=== PATIENT | female | born 1960 | race Caucasian/White ===

== ENCOUNTER → 2024-05-01 09:50 | Outpatient (CLI) | payer OTHER, SELFPAY ==
--- NOTE | 2024-05-01 13:18 | DI.ECHO.S_ITS ---
[facility] : : [address] : : [place] : : [id number] : : Phone: [phone] Echocardiogram Report + + :Name: RISHI BRANDON Study Date: 05/01/2024 Height: 67 in : :Hospital ReadingLocation: Weight: 143 lb : : Gender: Female BSA: 1.8 m2 : :: 1960 Age: 63 yrs BP: 145/92 mmHg: :Reason For Study: ATRIAL FIBRILLATION : :Ordering Physician: Cole STYLESformed By: Xavier Faustin : :Referring: CUBA STYLES : + + Interpretation Summary Normal left ventricle size with ejection fraction 50%. There is a pacemaker lead in the right ventricle. No significant valvular abnormality. Procedure: A two-dimensional transthoracic echocardiogram with color flow and Doppler was performed. The study quality was technically adequate. Comparison is made with the echocardiogram of 01/05/2023. POOR EKG SIGNAL. Left Ventricle: The left ventricle is normal in size and wall thickness. Left ventricular ejection fraction is estimated to be 50%. There is borderline global hypokinesis of the left ventricle. Right Ventricle: The right ventricle is normal in size and function. There is a pacemaker lead in the right ventricle. Atria: The left atrial size is normal. Right atrial size is normal. There is a catheter/pacemaker lead seen in the right atrium. The interatrial septum grossly appears intact with no obvious evidence for an atrial septal defect. Mitral Valve: The mitral valve is grossly normal. There is no mitral valve stenosis. There is trace mitral regurgitation. Aortic Valve: The aortic valve is trileaflet. There is no aortic valve stenosis. No aortic regurgitation is present. Tricuspid Valve: The tricuspid valve is normal. There is no tricuspid stenosis. There is a trace or physiologic amount of tricuspid regurgitation. Pulmonic Valve: The pulmonic valve is not well seen, but is grossly normal. There is no pulmonic valvular stenosis. There is trace pulmonic regurgitation. Great Vessels: The aortic root is normal size. The dimensions of the ascending aorta are normal. The IVC is of normal diameter and collapses greater than 50% with a sniff. This suggests a low right atrial pressure of 3 mm Hg. Pericardium/ Pleura There is no pericardial effusion. There is no pleural effusion. MMode/2D Measurements & Calculations LVIDd: 4.6 cm LVOT diam: 2.0 cm LVIDs: 3.6 cm Ao root diam: 3.3 cm FS: 20.4 % asc Aorta Diam: 3.0 cm IVSd: 0.92 cm LVPWd: 1.0 cm LV fisher. diameter/BSA (cm/m^2): 2.6 LV sys. diameter/BSA (cm/m^2): 2.1 LA A2 area: 20.2 cm2 RA long axis: 5.1 cm LA A4 area: 14.4 cm2 RA area: 13.6 cm2 LA length (vol): 4.2 cm RA vol: 30.7 ml LA vol: 59.2 ml RA : 17.5 ml/m2 LA vol index: 33.8 ml/m2 IVC diam: 1.7 cm RVD1 (basal): 3.5 cm RVD2 (mid): 2.8 cm TAPSE: 2.7 cm Doppler Measurements & Calculations Ao V2 max: 111.5 cm/sec LVOT Max Isiah: 86.7 cm/sec Ao V2 mean: 79.3 cm/sec LV V1 max P.0 mmHg Ao max P.0 mmHg LV V1 VTI: 20.3 cm Ao mean P.7 mmHg JEFERSON(I,D): 2.6 cm2 Ao V2 VTI: 24.5 cm JEFERSON(V,D): 2.4 cm2 sev ratio: 0.83 JEFERSON indexed to BSA (cm^2/m^2): 1.5 MV E max isiah: 48.9 cm/sec PA V2 max: 104.9 cm/sec MV A max isiah: 76.2 cm/sec PA V2 mean: 55.0 cm/sec MV E/A: 0.64 PA mean P.5 mmHg Med Peak E' Isiah: 5.1 cm/sec PA pr(Accel): 37.9 mmHg E/E' med: 9.5 Lat Peak E' Isiah: 5.0 cm/sec E/E' lat: 9.8 E/e' average: 9.7 MV dec time: 0.25 sec SV(LVOT): 62.9 ml Electronically signed by: Dallas Caldera on Reading Physician:05/02/2024 04:11 PM
--- NOTE | 2024-05-02 01:48 | DI.NM.S_ITS ---
DATE OF SERVICE: 05/01/2024 PROCEDURE: Pharmacological perfusion study. INDICATIONS: Paroxysmal AFib, left bundle-branch block, pacemaker. RADIOPHARMACEUTICAL: 27.0 mCi technetium-99m Myoview IV was injected at stress and 10.0 mCi technetium-99m Myoview IV was injected at rest. CARDIAC STRESS: The patient underwent IV Lexiscan perfusion study under the supervision of an attending staff using standard Lexiscan as per protocol. The patient remained hemodynamically stable. Baseline blood pressure 130/80. Baseline rhythm is A-sensed and ventricular-paced rhythm. During stress, no convincing new ischemic changes or significant arrhythmias seen. The patient had transient dyspnea and mild chest discomfort. No aminophylline was needed. RAW DATA: There is a breast shadow seen. Increased subdiaphragmatic activity. GATED STUDY: Stress LV ejection fraction 63% without any obvious wall motion abnormalities. Stress end-diastolic volume 112 mL. TID ratio 1.06, which is within normal limit. Lung/heart ratio 0.40, which is within normal limit. MYOCARDIAL PERFUSION SCAN: Stress supine, resting supine, and stress prone images were compared to each other. Stress supine images revealed small size, mildly decreased perfusion of basal anterior wall. Resting supine images revealed small size, mildly decreased perfusion of anterior wall. During stress prone images, anterior wall perfusion defect got resolved. Stress prone images revealed normal myocardial perfusion. CONCLUSION: I will call this study a normal myocardial perfusion study with evidence of breast tissue attenuation artifact, which got resolved during stress prone images. Preserved LV function. No significant wall motion abnormalities. Overall, low-risk myocardial perfusion scan. Aida Villalobos - RESIDENT PHYSICIAN/fn/GA doc#: [id number]/job#: [id number] dd: 05/01/2024 16:36:00 dt: 05/01/2024 23:44:00 DICTATING MD/COPIES TO: Hoang Watson MD COPIES MNE: BRENDA;
== END ==
PROVIDERS: Referring Provider Nurse Practitioner Family; Visit Provider Nurse Practitioner Family
DX: I48.0 Paroxysmal atrial fibrillation (principal); I44.7 Left bundle-branch block, unspecified; Z95.0 Presence of cardiac pacemaker
CPT/HCPCS: 78452; 93017; 93306; A9502; J2785

== ENCOUNTER → 2025-08-15 14:47 | Outpatient (CLI) | payer OTHER, SELFPAY | PROVIDERS: PCP Internal Medicine Cardiovascular Disease; Referring Provider Internal Medicine Cardiovascular Disease; Visit Provider Internal Medicine Cardiovascular Disease | DX: R06.02 Shortness of breath (principal); F17.210 Nicotine dependence, cigarettes, uncomplicated | CPT/HCPCS: 94060; 94726; 94729 ==